=== PATIENT | female | born 1960 | race Two or more races ===

== ENCOUNTER 2018-12-29 20:14 | Emergency (ER) | payer BC, OTHER ==
[2018-12-29 20:31] VITALS: BP 134/78; PULSE 95; TEMP 98.2; BMI 38.7
[2018-12-29] MEDS ORDERED: IBUPROFEN 600 MG TABLET (FP) PO ONE ×2 (20:32→20:35)
--- NOTE | 2018-12-29 20:37 | PDOC ---
History of Present Illness - General Chief Complaint: Pain Stated Complaint: R ANKLE PAIN Time Seen by Provider: 12/29/18 20:21 History Source: Patient Exam Limitations: No Limitations Past History - Past Medical History Allergies/Adverse Reactions: Allergies Allergy/AdvReac Type Severity Reaction Status Date / Time nitroglycerin Allergy Verified 07/17/14 09:21 tetracycline [Tetracycline] Allergy Verified 07/17/14 09:21 Home Medications: Ambulatory Orders Losartan Potassium [Cozaar] 50 mg PO DAILY 07/17/14 Asthma: Yes Cancer: No Cardiac Disorders: No CVA: No COPD: No CHF: No DVT: No Dementia: No Diabetes: No HTN: Yes - Surgical History Abdominal Surgery: Yes (ruptured ectopic) - Suicide/Smoking/Psychosocial Hx Smoking Status: No Smoking History: Never smoked Have you smoked in the past 12 months: No Number of Cigarettes Smoked Daily: 0 Information on smoking cessation initiated: No Hx Alcohol Use: No Drug/Substance Use Hx: No Substance Use Type: None Hx Substance Use Treatment: No *Physical Exam - Vital Signs Last Vital Signs Temp Pulse Resp BP Pulse Ox 98.2 F 95 H 20 134/78 100 12/29/18 20:19 12/29/18 20:19 12/29/18 20:19 12/29/18 20:19 12/29/18 20:19 - Physical Exam General Appearance: No: Apparent Distress Extremity: positive: Other (+swelling along R lateral malleolus with TTP, +pain on movement of R ankle, mild TTP along base of R 5th metatarsal, no deformity noted, R foot pulses intact, normal skin color). negative: Erythema Integumentary: positive: Normal Color, Dry. negative: Pale, Cold, Ecchymosis, Bruising Neurologic: positive: Alert, Normal Mood/Affect Moderate Sedation - Procedure Monitoring Vital Signs: Procedure Monitoring Vital Signs Temperature 98.2 F 12/29/18 20:19 Pulse Rate 95 H 12/29/18 20:19 Respiratory Rate 20 12/29/18 20:19 Blood Pressure 134/78 12/29/18 20:19 O2 Sat by Pulse Oximetry (%) 100 12/29/18 20:19 ED Treatment Course - RADIOLOGY Radiology Studies Ordered: Category Date Time Status ANKLE & FOOT-RIGHT* [RAD] Stat Radiology 12/29/18 20:32 Ordered Medical Decision Making - Medical Decision Making 58 y/o F with hx of asthma, HTN, DM (diet controlled) presents with R foot pain after twisting it while going down the stairs today. States she missed 1 step going down the stairs. Denies head/neck trauma, numbness/tingling. R/O ankle/foot fracture Plan: R ankle/foot xray, Motrin 12/29/18 20:34 No fracture noted on xrays Aircast splint placed Patient given crutches stable for dc 12/29/18 21:14 *DC/Admit/Observation/Transfer Diagnosis at time of Disposition: Right ankle sprain Qualifiers: Encounter type: initial encounter Involved ligament of ankle: unspecified ligament Qualified Code(s): S93.401A - Sprain of unspecified ligament of right ankle, initial encounter - Discharge Dispostion Disposition: HOME Condition at time of disposition: Stable Decision to Admit order: No - Referrals Referrals: Rashid Gar MD [Staff Physician] - 2 Days - Patient Instructions Printed Discharge Instructions: DI for Ankle Sprain, How to Use Crutches Additional Instructions: Thank you for choosing [facility]. It was a pleasure taking care of you. You may take Motrin 600 mg every 4 hours by mouth as needed for mild to moderate pain. Take Motrin with food. Apply cold compresses for the first 48 hours of injury; then switch to warm compresses. Keep leg elevated above level of heart Follow-up with PCP in 2-3 days Return to the Emergency Department if your symptoms worsen or persist or have other concerning symptoms. - Post Discharge Activity Forms/Work/School Notes: Back to Work
== END 2018-12-29 21:45 | disposition home or self-care (01) ==
LOC: JER 20:14 → JERFT 20:14
PROC: 2W3QX1Z Immobilization of Right Lower Leg using Splint (ICD-10-PCS; principal; 2018-12-29)
DX: S93.401A Sprain of unspecified ligament of right ankle, initial encounter (principal); W10.8XXA Fall (on) (from) other stairs and steps, initial encounter; Y93.89 Activity, other specified; Y92.89 Other specified places as the place of occurrence of the external cause; Y99.8 Other external cause status; I10 Essential (primary) hypertension; E11.9 Type 2 diabetes mellitus without complications; J45.909 Unspecified asthma, uncomplicated
CPT/HCPCS: 73610-TC-RT-FY; 73630-TC-RT-FY; 99281-25

== ENCOUNTER 2021-06-08 04:42 | Day surgery (SDC) | payer OTHER ==
[2021-06-07 14:37] VITALS: BMI 38.4
[2021-06-08] MEDS ORDERED: MIDAZOLAM HCL 2 MG/2 ML SINGLE DOSE VIAL ONE (09:20)
[2021-06-08] MEDS ORDERED: SUCCINYLCHOLINE CHLORIDE 200 MG/10 ML SYRINGE ONE (09:43)
[2021-06-08] MEDS ORDERED: PROPOFOL 20 ML ONE ×3 (09:43)
[2021-06-08] MEDS ORDERED: oxyCODONE HCL 5 MG TABLET PO PRN ×3 (10:26→10:31)
[2021-06-08] MEDS ORDERED: ONDANSETRON 4 MG/2 ML VIAL IVPUSH PRN ×2 (10:26→10:31)
[2021-06-08] MEDS ORDERED: LACTATED RINGERS SOLUTION 1,000 ML IV SCH (10:30)
[2021-06-08] MEDS ORDERED: IBUPROFEN 800 MG/8 ML IJ IVPB PRN (10:31)
[2021-06-08] MEDS ORDERED: IBUPROFEN 600 MG TABLET (FP) PO PRN (10:31)
[2021-06-08] MEDS ORDERED: KETOROLAC TROMETHAMINE 30 MG/1 ML VIAL ONE (10:35)
[2021-06-08] MEDS ORDERED: LIDOCAINE HCL/PF 2% SDV 5ML VIAL ONE (10:35)
[2021-06-08] MEDS ORDERED: DEXAMETHASONE SOD PHOSPHATE 4 MG/1 ML VIAL ONE (10:35)
[2021-06-08] MEDS ORDERED: ROCURONIUM BROMIDE 50 MG/5 ML SYRINGE ONE (10:35)
[2021-06-08] MEDS ORDERED: ELECTROLYTE-148 SOLN 1,000 ML IV SCH (10:45)
[2021-06-08 15:22] VITALS: BP 122/70; PULSE 98; TEMP 98
== END 2021-06-08 15:42 | disposition home or self-care (01) ==
LOC: JASU-SURG 04:42
PROVIDERS: ATTEND Obstetrics & Gynecology
PROC: 0UB98ZX Excision of Uterus, Via Natural or Artificial Opening Endoscopic, Diagnostic (ICD-10-PCS; principal; 2021-06-08 09:30)
PROC: 0UDB7ZX Extraction of Endometrium, Via Natural or Artificial Opening, Diagnostic (ICD-10-PCS; 2021-06-08 09:30)
DX: N95.0 Postmenopausal bleeding (principal); N84.0 Polyp of corpus uteri
CPT/HCPCS: 88305-TC; 94760

== ENCOUNTER 2022-01-25 04:28 | Day surgery (SDC) | payer OTHER ==
[2022-01-24 12:17] VITALS: BMI 40.2
[2022-01-25] MEDS ORDERED: LIDOCAINE HCL/PF 2% SDV 5ML VIAL ONE (10:38)
[2022-01-25] MEDS ORDERED: MIDAZOLAM HCL 2 MG/2 ML SINGLE DOSE VIAL ONE (10:38)
[2022-01-25] MEDS ORDERED: PROPOFOL 20 ML ONE ×2 (10:38)
[2022-01-25] MEDS ORDERED: ONDANSETRON 4 MG/2 ML VIAL IVPUSH PRN (12:14)
[2022-01-25] MEDS ORDERED: oxyCODONE HCL 5 MG TABLET PO PRN ×2 (12:14)
[2022-01-25] MEDS ORDERED: LACTATED RINGERS SOLUTION 1,000 ML IV SCH (12:15)
[2022-01-25] MEDS ORDERED: KETOROLAC TROMETHAMINE 30 MG/1 ML VIAL ONE (12:26)
[2022-01-25 15:32] VITALS: BP 117/72
[2022-01-25 16:02] VITALS: PULSE 83; TEMP 97.7
[2022-01-26] MEDS ORDERED: ENOXAPARIN NA (PORCINE) 40 MG/0.4 ML DISP.SYRIN SQ SCH (10:00)
== END 2022-01-25 16:25 | disposition home or self-care (01) ==
LOC: JASU-SURG 04:28
PROVIDERS: ATTEND Obstetrics & Gynecology
PROC: 3E033GC Introduction of Other Therapeutic Substance into Peripheral Vein, Percutaneous Approach (ICD-10-PCS; principal; 2022-01-25 11:00)
DX: D50.9 Iron deficiency anemia, unspecified (principal)
CPT/HCPCS: 82962; 88305-TC; 94760

== ENCOUNTER 2025-05-28 10:18 | Observation (INO) | payer OTHER ==
[2025-05-28] MEDS ORDERED: MAG HYDROX/AL HYDROX/SIMETH 30 ML UNIT-DOSE CUP ONE (11:21)
[2025-05-28] MEDS ORDERED: ACETAMINOPHEN INJECTION 100 ML ONE (11:21)
[2025-05-28] MEDS ORDERED: FAMOTIDINE 20 MG/50 ML IVPB 20 MG/50 ML MG IVPB ONE (11:22)
[2025-05-28] MEDS: MAG HYDROX/AL HYDROX/SIMETH 30 ML UNIT-DOSE CUP PO ONE (11:31)
[2025-05-28] MEDS: SODIUM CHLORIDE 0.9% 500 ML INFUS.BAG IV ONE (11:31)
[2025-05-28] MEDS: ACETAMINOPHEN 1000 MG/100 ML BAG IVPB ONE (11:32)
[2025-05-28] MEDS: FAMOTIDINE 20 MG/50 ML IVPB 20 MG/50 ML MG IVPB ONE (11:32)
[2025-05-28 11:52] LABS: EOSINOPHILS # 0.88 x10^3/uL (0.04-0.36)
[2025-05-28 11:54] LABS: ABSOLUTE IMMATURE GRANULOCYTES 0.03 x10^3/uL (0.0-0.031); BASOPHILS # 0.08 x10^3/uL (0.01-0.08); EOSINOPHIL % 9.2 % (0.7-5.8); IMMATURE PLATELET FRACTION # 12.90 x10^3/uL; MCHC 31.3 g/dl (32.2-35.5); MEAN CELL VOLUME 79.9 fl (79.4-94.8); MEAN PLT VOLUME 10.7 fl (9.4-12.3); MONOCYTE # 0.70 x10^3/uL (0.24-0.86); MONOCYTE % 7.3 % (4.7-12.5); RDW 15.9 % (12.4-16.4)
[2025-05-28 12:54] LABS: GLUCOSE,RANDOM 95.0 mg/dL (74-106)
[2025-05-28 12:55] LABS: CO2 20.0 mmol/L (21-32)
[2025-05-28 12:57] LABS: CREATININE 0.7 mg/dL (0.55-1.3); SGPT/ALT 24.0 U/L (13-61)
[2025-05-28 12:58] LABS: SGOT/AST 30.0 U/L (15-37)
[2025-05-28 12:59] LABS: TOT PROT 6.6 g/dl (6.4-8.2)
[2025-05-28 13:00] LABS: ALK PHOS 71.0 U/L (45-117)
[2025-05-28] MEDS ORDERED: ONDANSETRON 4 MG/2 ML VIAL ONE (13:54)
[2025-05-28] MEDS: ONDANSETRON 4 MG/2 ML VIAL IVPUSH ONE (14:10)
[2025-05-28 15:06] LABS: URINE APPEARANCE CLEAR; URINE BILIRUBIN NEGATIVE (NEGATIVE); URINE COLOR YELLOW; URINE GLUCOSE (UA) NEGATIVE (NEGATIVE); URINE KETONE NEGATIVE (NEGATIVE); URINE LEUK ESTERASE NEGATIVE (NEGATIVE); URINE NITRITE NEGATIVE (NEGATIVE); URINE PROTEIN NEGATIVE (NEGATIVE); URINE UROBILINOGEN 0.2 mg/dL (0.2-1.0)
[2025-05-28] MEDS ORDERED: ONDANSETRON 4 MG/2 ML VIAL IVPUSH PRN (15:21)
[2025-05-28] MEDS ORDERED: ACETAMINOPHEN 500 MG TABLET (FP) PO PRN (15:31)
[2025-05-28] MEDS: LACTATED RINGERS SOLUTION 1,000 ML/1,000 ML INFUS.BAG IV SCH (15:53)
[2025-05-28] MEDS: BISACODYL 5 MG TABLET.DR (FP) PO ONE (15:55)
[2025-05-28 17:39] VITALS: RESP 18; BMI 37.6
[2025-05-28] MEDS: INSULIN ASPART SLIDING SCALE (NOVOLOG) 1 VIAL SQ SCH (18:53)
[2025-05-28] MEDS: BUDESONIDE/FORMETEROL FUMARATE 80/4.5 mcg INHALER IH SCH (21:53)
[2025-05-28] MEDS ORDERED: FAMOTIDINE 20 MG TABLET PO SCH (22:00)
[2025-05-28] MEDS ORDERED: HEPARIN NA (PORCINE) 5,000 UNITS/ML 1ML VIAL SQ SCH (22:00)
[2025-05-28] MEDS: MAG HYDROX/AL HYDROX/SIMETH 30 ML UNIT-DOSE CUP PO PRN (23:47)
[2025-05-29 08:28] VITALS: BP 142/87; PULSE 93; TEMP 97.9
[2025-05-29 08:35] LABS: ABSOLUTE IMMATURE GRANULOCYTES 0.02 x10^3/uL (0.0-0.031); BASOPHILS # 0.08 x10^3/uL (0.01-0.08); EOSINOPHIL % 12.2 % (0.7-5.8); EOSINOPHILS # 0.98 x10^3/uL (0.04-0.36); MCHC 30.7 g/dl (32.2-35.5); MEAN CELL VOLUME 80.1 fl (79.4-94.8); MEAN PLT VOLUME 10.4 fl (9.4-12.3); MONOCYTE # 0.63 x10^3/uL (0.24-0.86); MONOCYTE % 7.8 % (4.7-12.5); RDW 15.7 % (12.4-16.4)
[2025-05-29 08:48] LABS: INR 1.02 (0.83-1.09); PROTHROMBIN TIME (PATIENT) 11.2 SEC (9.7-13.0)
[2025-05-29 08:54] LABS: CO2 26.0 mmol/L (21-32); GLUCOSE,RANDOM 95.0 mg/dL (74-106)
[2025-05-29 08:57] LABS: CREATININE 0.7 mg/dL (0.55-1.3); SGOT/AST 14.0 U/L (15-37); SGPT/ALT 20.0 U/L (13-61)
[2025-05-29 08:59] LABS: TOT PROT 5.9 g/dl (6.4-8.2)
[2025-05-29 09:00] LABS: ALK PHOS 66.0 U/L (45-117)
[2025-05-29] MEDS: LOSARTAN POTASSIUM 50 MG TABLET PO SCH (09:51)
[2025-05-29] MEDS: TIOTROPIUM BROMIDE 2.5 MCG (SPIRIVA) RESPIMAT INHALER IH SCH (10:54)
[2025-05-29] MEDS: SIMETHICONE 80 MG TAB.CHEW (FP) PO PRN (10:54)
[2025-05-29] MEDS ORDERED: MONTELUKAST NA 10 MG TABLET PO SCH (22:00)
[2025-05-29] MEDS ORDERED: POLYETHYLENE GLYCOL (HEALTHYLAX) 3350 17 GM PACKET PO SCH (22:00)
[2025-05-29] MEDS ORDERED: HEPARIN NA (PORCINE) 5,000 UNITS/ML 1ML VIAL SQ SCH (22:00)
[2025-05-30] MEDS ORDERED: LOSARTAN POTASSIUM 50 MG TABLET PO SCH (10:00)
== END 2025-05-29 14:34 | disposition home or self-care (01) ==
LOC: JER 10:18 → JERBED 14:47 → J5S 17:17
PROVIDERS: ADMIT Internal Medicine
PROC: 3E033NZ Introduction of Analgesics, Hypnotics, Sedatives into Peripheral Vein, Percutaneous Approach (ICD-10-PCS; principal; 2025-05-28)
PROC: 3E0337Z Introduction of Electrolytic and Water Balance Substance into Peripheral Vein, Percutaneous Approach (ICD-10-PCS; 2025-05-28)
DX: R10.84 Generalized abdominal pain (principal); R10.13 Epigastric pain; E11.9 Type 2 diabetes mellitus without complications; J45.909 Unspecified asthma, uncomplicated; I10 Essential (primary) hypertension; K59.00 Constipation, unspecified; Z79.85 Long-term (current) use of injectable non-insulin antidiabetic drugs; Z88.8 Allergy status to other drugs, medicaments and biological substances
CPT/HCPCS: 36415; 74177-TC; 80048; 80053; 81003; 82962; 83690; 83735; 84484; 85025; 85610; 86850; 86900; 86901; 87086; 93005; 93010; 96361; 96365; 96375; 99285-25; G0378; Q9967